=== PATIENT | male | born 1985 | race Hispanic/Latino ===

== ENCOUNTER 2017-07-07 21:00 | Emergency (ER) | payer SELFPAY ==
--- NOTE | 2017-07-07 22:03 | CT ---
NONCONTRAST HEAD CT: Date 07/07/17 HISTORY: Patient hit head at work on a garage 4 days ago. Patient has been passing out in the last hour. Previ ous nosebleed. COMPARISON: None. TECHNIQUE: A noncontrast head CT is performed from the skull base to the skull vertex. FINDINGS: No parenchymal hemorrhage or extra-axial hematoma. No midline shift. Basilar cisterns are patent. Bra in volume is age-appropriate. Cortical casillas-white matter differentiation is preserved. Ventricles and sulci are patent and symmetric. Adequate aeration of the sinuses and mastoid air cells. Calvarium is intact. IMPRESSION: No acute intracranial process. POS: [facility]
[2017-07-08] MEDS ORDERED: Acetaminophen 500 MG TAB ONE (01:15)
[2017-07-08] MEDS ORDERED: diphenhydrAMINE 50 MG/ML VIAL ONE (01:15)
[2017-07-08] MEDS ORDERED: Metoclopramide HCl 10 MG/2 ML VIAL ONE (01:15)
[2017-07-08 01:30] LABS: #Basophils 0.1 thou/uL (0.0-0.2); #Eosinphils 0.1 thou/uL (0.0-0.7); #Monocytes 0.5 thou/uL (0.11-0.59); #Neutrophils 4.3 thou/uL (1.40-6.50); %Basophils 0.9 % (0.0-1.0); %Eosinophils 1.4 % (0.0-10.0); %Lymphocytes 37.3 % (21.0-51.0); %Monocytes 5.9 % (0.0-10.0); %Neutrophils 54.5 % (42.0-75.0); Hemoglobin 15.5 g/dL (14.0-18.0); Mean Corpuscular HGB CONC 34.6 g/dL (32.0-36.0); Mean Corpuscular Hemoglobin 33.2 pg (27.0-31.0); Mean Corpuscular Volume 96.2 fl (80.0-94.0); Mean Platelet Volume 6.5 fL (7.4-10.4); Platelet Count 281 thou/uL (130-400); RBC Distribution Width 11.4 % (11.5-14.5); Red Blood Cell (RBC) Count 4.65 mill/uL (4.70-6.10)
[2017-07-08 01:49] LABS: Anion Gap 15 mmol/L (10-20); BUN (Urea Nitrogen) 9 mg/dL (8.9-20.6); Calc. Creatinine Clearance 0 mL/min (70-130); Carbon Dioxide 25 mmol/L (22-29); Chloride 105 mmol/L (98-107); Estimated GFR-MDRD Greater than 90; Glucose 94 mg/dL (70-105); Potassium 4.2 mmol/L (3.5-5.1); Sodium 141 mmol/L (136-145)
[2017-07-08 01:54] LABS: CKMB 1.7 ng/mL (0-6.6); Troponin I Less than 0.010 ng/mL (< 0.028)
== END 2017-07-08 02:52 | disposition home or self-care (01) ==
LOC: ERS 21:00
DX: S09.90XA Unspecified injury of head, initial encounter (principal); F17.210 Nicotine dependence, cigarettes, uncomplicated; W22.8XXA Striking against or struck by other objects, initial encounter
CPT/HCPCS: 36415; 70450; 80048; 82553; 84484; 85025; 93005; 96365; 96375; J1200; J2765